=== PATIENT | male | born 1950 | race Caucasian/White ===

== ENCOUNTER 2017-07-31 20:15 | Inpatient (IN) | payer OTHER ==
[2017-07-31] MEDS ORDERED: ASPIRIN 81 MG CHEWABLE TABLETS PO ONE (20:30)
--- NOTE | 2017-07-31 20:30 | PDOC ---
Rapid Medical Evaluation Time Seen by Provider: 07/31/17 20:27 Medical Evaluation: 07/31/17 20:27 I have performed a brief in-person evaluation of this patient. The patient presents with a chief complaint of: pain radiating from RLQ to left chest down to left arm, SOB, blurry vision, dizziness, headache. had stroke 6 months ago, has not taken cholesterol meds in 3 days, weakness to L side, per daughter in law "he seems slower" Pertinent physical exam findings: A&O x 3, no focal neuro deficits, left BP 207/ 107, R 193/113, HR 100 I have ordered the following: labs, ekg, cxr The patient will proceed to the ED for further evaluation. Discharge Disposition - Diagnosis Chest pain - Referrals - Patient Instructions - Post Discharge Activity
[2017-07-31] MEDS ORDERED: ASPIRIN 81 MG CHEWABLE TABLETS ONE (20:54)
--- NOTE | 2017-07-31 20:57 | PDOC ---
Attending Attestation - HPI HPI: 07/31/17 21:04 The patient is a 66 year old male with a significant PMH of stroke (6 months ago ), unspecified heart issues, and hyperlipidemia who presents to the emergency department with left arm tingling and RLQ abdominal pain over the past day. He reports taking an Aspirin at about 12PM to minimal relief. He reports he has not taken his prescribed hyperlipidemia medications in about 3 days. Allergies: NKA PCP: None reported. <Billy Wilde - Last Filed: 07/31/17 23:11> - Resident Resident Name: Jaskaran Johnson - ED Attending Attestation I have performed the following: I have examined & evaluated the patient, The case was reviewed & discussed with the resident, I agree w/resident's findings & plan, Exceptions are as noted - Physicial Exam PE: 08/01/17 19:16 *Physical Exam General Appearance: Yes: Appropriately Dressed. No: Apparent Distress, Intoxicated HEENT: positive: EOMI, MERCED, Normal ENT Inspection, Normal Voice, TMs Normal, Pharynx Normal. negative: Pale Conjunctivae, Photophobia, Scleral Icterus (R), Scleral Icterus (L) Neck: positive: Trachea midline, Normal Thyroid, Supple. negative: Tender, Rigid, Carotid bruit, Stridor, Lymphadenopathy (R), Lymphadenopathy (L), Thyromegaly Respiratory/Chest: positive: Lungs Clear, Normal Breath Sounds. negative: Chest Tender, Respiratory Distress, Accessory Muscle Use, Labored Respiration, RES, Crackles, Rales, Rhonchi, Stridor, Wheezing, Dullness Cardiovascular: positive: Regular Rhythm, Regular Rate, S1, S2. negative: Edema , JVD, Murmur, Bradycardia, Tachycardia Vascular Pulses: Dorsalis-Pedis (R): 2+, Doralis-Pedis (L): 2+ Gastrointestinal/Abdominal: positive: Normal Bowel Sounds, Flat, Soft. RLQ tenderness negative: Organomegaly, Pulsatile Mass, Increased Bowel Sounds, Decreased BS, Distended, Guarding, Rebound, Hernia, Hepatomegaly, Spleenomegaly Lymphatic: negative: Adenopathy, Tenderness Musculoskeletal: positive: Normal Inspection. negative: CVA Tenderness, Decreased Range of Motion Extremity: positive: Normal Capillary Refill, Normal Inspection, Normal Range of Motion, Pelvis Stable. negative: Tender, Pedal Edema, Swelling, Erythema Integumentary: positive: Normal Color, Dry, Warm. 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 negative: EOM Palsy, Facial Droop, Sensory Deficit - Medical Decision Making 07/31/17 23:14 Pt to be admitted. <Pan Clifton - Last Filed: 08/01/17 19:17>
[2017-07-31 21:01] LABS: BASO % 1.1 % (0-2.0); EOS % 0.5 % (0-4.5); HEMATOCRIT 34.5 % (35.4-49); HEMOGLOBIN 11.5 GM/dL (11.7-16.9); LYMPH % 17.7 % (8-40); MCH 25.5 pg (25.7-33.7); MCHC 33.3 g/dl (32.0-35.9); MEAN CELL VOLUME 76.6 fl (80-96); MEAN PLT VOLUME 7.6 fl (7.5-11.1); MONO % 5.8 % (3.8-10.2); NEUT % 74.9 % (42.8-82.8); PLATELET COUNT 278 K/MM3 (134-434); RDW 17.3 % (11.9-15.9); WHITE BLOOD COUNT 11.1 K/mm3 (4.0-10.0)
[2017-07-31] MEDS ORDERED: LABETALOL HCL 5 MG/1 ML (100MG/20 ML VIAL) IVPUSH ONE (21:02)
--- NOTE | 2017-07-31 21:04 | PDOC ---
History of Present Illness - General Chief Complaint: Pain, Acute Stated Complaint: PAIN Time Seen by Provider: 07/31/17 20:27 - History of Present Illness Initial Comments: 07/31/17 21:10 Mr. Benji Velasquez is a 66 yo male w/ pmh of HTN, HLD, stroke approximately 6 months ago with residual left arm weakness, stenosis of heart vessel currently being medically managed (patient unable to provide further information) who presents to ER complaining of 1 day history of RLQ abdominal pain and chest pain /tightness and parasthesias radiating down left arm. The patient denies shortness of breath, headache and dizziness. Denies fever, chills, nausea, vomit, diarrhea and constipation. Denies dysuria, frequency, urgency and hematuria. Allergies: NKDA Past History - Past Medical History Allergies/Adverse Reactions: Allergies Allergy/AdvReac Type Severity Reaction Status Date / Time No Known Allergies Allergy Verified 07/31/17 20:37 Home Medications: Ambulatory Orders NK [No Known Home Medication] 07/31/17 COPD: No - Suicide/Smoking/Psychosocial Hx Smoking History: Never smoked Have you smoked in the past 12 months: No Information on smoking cessation initiated: No Hx Alcohol Use: No Drug/Substance Use Hx: No Review of Systems - Review of Systems Comments:: 07/31/17 21:13 GENERAL/CONSTITUTIONAL: No fever or chills. No weakness. HEAD, EYES, EARS, NOSE AND THROAT: No change in vision. No ear pain or discharge. No sore throat. CARDIOVASCULAR: +Chest pain as described. No shortness of breath RESPIRATORY: No cough, wheezing, or hemoptysis. GASTROINTESTINAL: +RLQ pain. No nausea, vomiting, diarrhea or constipation. GENITOURINARY: No dysuria, frequency, or change in urination. MUSCULOSKELETAL: +Left arm tingling. No change from baseline strength post stroke per patient/family. SKIN: No rash NEUROLOGIC: No headache, vertigo, loss of consciousness, or change in strength/ sensation. ENDOCRINE: No increased thirst. No abnormal weight change HEMATOLOGIC/LYMPHATIC: No anemia, easy bleeding, or history of blood clots. ALLERGIC/IMMUNOLOGIC: No hives or skin allergy. *Physical Exam - Vital Signs Last Vital Signs Temp Pulse Resp BP Pulse Ox 97.8 F 100 H 16 207/107 98 07/31/17 20:29 07/31/17 20:29 07/31/17 20:29 07/31/17 20:29 07/31/17 20:29 - Physical Exam Comments: 07/31/17 21:14 GENERAL: Awake, alert, and fully oriented, in no acute distress HEAD: No signs of trauma, normocephalic, atraumatic EYES: PERRLA, EOMI, sclera anicteric, conjunctiva clear ENT: Auricles normal inspection, hearing grossly normal, nares patent, oropharynx clear without exudates. Moist mucosa NECK: Normal ROM, supple, no lymphadenopathy, JVD, or masses LUNGS: No distress, speaks full sentences, clear to auscultation bilaterally HEART: Regular rate and rhythm, normal S1 and S2, no murmurs, rubs or gallops, peripheral pulses normal and equal bilaterally. ABDOMEN: +TTP in RLQ. Soft, normoactive bowel sounds. No guarding, no rebound. No masses EXTREMITIES: Normal inspection, Normal range of motion, no edema. No clubbing or cyanosis. NEUROLOGICAL: Cranial nerves II through XII grossly intact. Normal speech, normal gait, no focal sensorimotor deficits SKIN: Warm, Dry, normal turgor, no rashes or lesions noted. 07/31/17 23:14 ED Treatment Course - LABORATORY CBC & Chemistry Diagram: 07/31/17 20:53 07/31/17 20:53 - ADDITIONAL ORDERS Additional order review: 07/31/17 20:53 RBC 4.50 MCV 76.6 L MCHC 33.3 RDW 17.3 H MPV 7.6 Neutrophils % 74.9 Lymphocytes % 17.7 Monocytes % 5.8 Eosinophils % 0.5 Basophils % 1.1 - RADIOLOGY Radiology Studies Ordered: Category Date Time Status ABDOMEN & PELVIS CT W/O CONTR [CT] Stat CT Scan 07/31/17 20:[address] WITHOUT CONTRAST [CT] Stat CT Scan 07/31/17 20:56 Ordered - Medications Given in the ED: ED Medications Discontinued Medications Generic Name Dose Route Start Last Admin Trade Name Freq PRN Reason Stop Dose Admin Aspirin 162 mg 07/31/17 20:30 07/31/17 21:02 Asa - PO 07/31/17 20:31 162 mg ONCE ONE Administration Medical Decision Making - Medical Decision Making 07/31/17 23:17 Mr. Benji Velasquez is a 66 yo male w/ pmh as described who presents w/ RLQ pain with left hand parasthesias for 1 day. Head and abdominal CT ordered with labs for evaluation. Head CT negative for acute process. Abdominal CT positive for thickened tubular structure in right lower pelvis suspicious for acute appendicitis. Surgery consulted (Dr. Auguste) who will evaluate patient. Hospitalist paged for admission. 07/31/17 23:32 Patient admitted to medicine. *DC/Admit/Observation/Transfer Diagnosis at time of Disposition: Appendicitis Qualifiers: Appendicitis type: acute appendicitis Acute appendicitis type: unspecified acute appendicitis type Qualified Code(s): K35.80 - Unspecified acute appendicitis - Discharge Dispostion Admit: Yes - Referrals - Patient Instructions - Post Discharge Activity
[2017-07-31] MEDS ORDERED: LABETALOL HCL 5 MG/1 ML (200MG/40ML VIAL) IVPB ONE (21:06)
[2017-07-31 21:20] LABS: INR 1.09 (0.82-1.09); PROTHROMBIN TIME (PATIENT) 12.3 SEC (9.98-11.88)
[2017-07-31 21:23] LABS: ALBUMIN 3.7 g/dl (3.4-5.0); ANION GAP 8 (8-16); BILIRUBIN,TOTAL 0.2 mg/dL (0.2-1.0); BLOOD UREA NITROGEN 19 mg/dL (7-18); CALCIUM 8.5 mg/dL (8.5-10.1); CHLORIDE 105 mmol/L (98-107); CO2 25 mmol/L (21-32); GLUCOSE,RANDOM 132 mg/dL (74-106); MAGNESIUM 1.8 mg/dL (1.8-2.4); POTASSIUM 3.6 mmol/L (3.5-5.1); SGOT/AST 19 U/L (15-37); SGPT/ALT 30 U/L (12-78); SODIUM 138 mmol/L (136-145); TOT PROT 7.7 g/dl (6.4-8.2)
[2017-07-31 21:26] LABS: ALK PHOS 125 U/L (45-117)
[2017-07-31] MEDS ORDERED: VANCOMYCIN 1,000 MG in DEXTROSE 5%-WATER - 250 ML IVPB ONE (23:21)
[2017-07-31] MEDS ORDERED: PIPERACIL/TAZOB 3.375 GM 3.375 GM/50 ML PREMIX IVPB ONE (23:21)
[2017-07-31] MEDS ORDERED: VANCOMYCIN 1 GRAM (PRE-DOCKED) 1,000 MG/250 ML BAG IVPB ONE (23:24)
--- NOTE | 2017-07-31 23:35 | PN ---
Teaching Attending Note Name of Resident: Prosper Dyer ATTENDING PHYSICIAN STATEMENT I saw and evaluated the patient. I reviewed the resident's note and discussed the case with the resident. I agree with the resident's findings and plan as documented. SUBJECTIVE: 66 M with Pmhx. fo HTN, HLD, Stroke (6 months ago, with residual L. arm weakness ), Stenosis of Heart Valve? With RLQ abdominal pain. States he does not have any chest pain or pressure. No headaches or dizziness. Does note RLQ abdominal pain. No fevers or chills. OBJECTIVE: Physical: VS: Vital Signs Period Temp Pulse Resp BP Sys/[place] Pulse Ox Last 24 Hr 97.8 F 83-100 16-18 175-207/83-107 96-98 GEN: NAD, Resting in bed, AA0X3 HEENT: NCAT, PERRL, Throat without erythema or exudates CARD: RRR S1, S2 RESP: CTAB ABD: BSx4, NTD to palpation EXT: - C/C/E CBCD WBC 11.1 K/mm3 (4.0-10.0) H 07/31/17 20:53 RBC 4.50 M/mm3 (4.00-5.60) 07/31/17 20:53 Hgb 11.5 GM/dL (11.7-16.9) L 07/31/17 20:53 Hct 34.5 % (35.4-49) L 07/31/17 20:53 MCV 76.6 fl (80-96) L 07/31/17 20:53 MCHC 33.3 g/dl (32.0-35.9) 07/31/17 20:53 RDW 17.3 % (11.9-15.9) H 07/31/17 20:53 Plt Count 278 K/MM3 (134-434) 07/31/17 20:53 MPV 7.6 fl (7.5-11.1) 07/31/17 20:53 CMP Sodium 138 mmol/L (136-145) 07/31/17 20:53 Potassium 3.6 mmol/L (3.5-5.1) 07/31/17 20:53 Chloride 105 mmol/L (98-107) 07/31/17 20:53 Carbon Dioxide 25 mmol/L (21-32) 07/31/17 20:53 Anion Gap 8 (8-16) 07/31/17 20:53 BUN 19 mg/dL (7-18) H 07/31/17 20:53 Creatinine 1.0 mg/dL (0.7-1.3) 07/31/17 20:53 Creat Clearance w eGFR > 60 (>60) 07/31/17 20:53 Random Glucose 132 mg/dL (74-106) H 07/31/17 20:53 Calcium 8.5 mg/dL (8.5-10.1) 07/31/17 20:53 Total Bilirubin 0.2 mg/dL (0.2-1.0) 07/31/17 20:53 AST 19 U/L (15-37) 07/31/17 20:53 ALT 30 U/L (12-78) 07/31/17 20:53 Alkaline Phosphatase 125 U/L (45-117) H 07/31/17 20:53 Total Protein 7.7 g/dl (6.4-8.2) 07/31/17 20:53 Albumin 3.7 g/dl (3.4-5.0) 07/31/17 20:53 CARDIAC ENZYMES Creatine Kinase 84 IU/L (39-308) 07/31/17 20:53 Troponin I < 0.02 ng/ml (0.00-0.05) 07/31/17 20:53 CXR:PENDING EKG: NSR Q waves inferior leads Ambulatory Orders NK [No Known Home Medication] 07/31/17 CT HEAD- Chronic R. frontoparietal infarct Small left basal ganglia infarcts CT ABD/PELVIS: Mildly thickened tubular structure within RLL Pelvis, possible acute appy. Athrosclerotic AV calcificationa Mild localized bulging of infrarenal aorta without anyeurysm. ASSESSMENT AND PLAN: 66 M with Pmhx. fo HTN, HLD, Stroke (6 months ago, with residual L. arm weakness ), Stenosis of Heart Valve? With RLQ abdominal pain and chest pain, being admitted for ACS rule out and acute appendicitis 1.) Acute Appendicitis - NPO - Zosyn - ID consult - Sx. Consult - Type & Screen - Coags 2.) Hx. of CVA - ASA recieved in ED - CT HEAD as Above - C/W Statin - [facility] 3.) AV Stenosis - ECHO 4.) Dvt Ppx - Scds Place in [facility]
[2017-07-31] MEDS ORDERED: ACETAMINOPHEN 1000 MG/100 ML VIAL (NON FORMULARY) IVPB ONE (23:48)
[2017-08-01] MEDS ORDERED: ACETAMINOPHEN 325 MG TABLET (FP) PO PRN (00:26)
[2017-08-01] MEDS ORDERED: ACETAMINOPHEN INJECTION 100 ML IVPB ONE ×2 (00:35→11:27)
--- NOTE | 2017-08-01 00:52 | HP ---
CHIEF COMPLAINT: abdominal pain PCP: n/a HISTORY OF PRESENT ILLNESS: Patient is a 66 yo M with Pmhx of HTN, HLD, CVA (6 months ago with residual left arm weakness), unspecified heart problem, presents to the ED with 3 day onset of 5/10, intermittent, non-radiating, RLQ abdominal pain. No exacerbating or alleviate factors. Patient states abdominal pain only occurs when pressing on it. Patient denies chest pain, nausea, vomiting, fevers, diarrhea, melena, cough, dysuria, SOB. Patient also states he has not seen a sign builder supervisor or neurologist since his CVA 6 months ago. He currently does not recall the medications he's on. ER course was notable for: (1) Abd CT suspicious for acute appendicitis. (2) Vanc/Zosyn (3) BP 207/107, given 20mg IV labetolol Recent Travel: n/a PAST MEDICAL HISTORY: per HPI PAST SURGICAL HISTORY: n/a Social History: Smoking: denies Alcohol: occasional Drugs: denies Family History: Allergies No Known Allergies Allergy (Verified 07/31/17 20:37) HOME MEDICATIONS: Home Medications Medication Instructions Recorded NK [No Known Home Medication] 07/31/17 REVIEW OF SYSTEMS CONSTITUTIONAL: Absent: fever, chills, diaphoresis, generalized weakness, malaise, loss of appetite, weight change HEENT: Absent: rhinorrhea, nasal congestion, throat pain, throat swelling, difficulty swallowing, mouth swelling, ear pain, eye pain, visual changes CARDIOVASCULAR: Absent: chest pain, syncope, palpitations, irregular heart rate, lightheadedness , peripheral edema RESPIRATORY: Absent: cough, shortness of breath, dyspnea with exertion, orthopnea, wheezing, stridor, hemoptysis GASTROINTESTINAL: Absent: abdominal pain, abdominal distension, nausea, vomiting, diarrhea, constipation, melena, hematochezia GENITOURINARY: Absent: dysuria, frequency, urgency, hesitancy, hematuria, flank pain, genital pain MUSCULOSKELETAL: Absent: myalgia, arthralgia, joint swelling, back pain, neck pain SKIN: Absent: rash, itching, pallor HEMATOLOGIC/IMMUNOLOGIC: Absent: easy bleeding, easy bruising, lymphadenopathy, frequent infections ENDOCRINE: Absent: unexplained weight gain, unexplained weight loss, heat intolerance, cold intolerance NEUROLOGIC: left arm weakness, paresthesias, headaches Absent: dizziness, unsteady gait, seizure, mental status changes, bladder or bowel incontinence PSYCHIATRIC: Absent: anxiety, depression, suicidal or homicidal ideation, hallucinations. PHYSICAL EXAMINATION Vital Signs - 24 hr 07/31/17 07/31/17 07/31/17 20:29 21:09 21:12 Temperature 97.8 F Pulse Rate 100 H Pulse Rate [ 83 Radial] Respiratory 16 18 17 Rate Blood Pressure 207/107 Blood Pressure 197/96 175/83 [Left Arm] O2 Sat by Pulse 98 96 96 Oximetry (%) 07/31/17 07/31/17 21:22 23:49 Temperature 98.7 F Pulse Rate Pulse Rate [ 89 78 Radial] Respiratory 18 Rate Blood Pressure Blood Pressure 180/91 181/84 [Left Arm] O2 Sat by Pulse 98 98 Oximetry (%) GENERAL: Awake, alert, and fully oriented, in no acute distress. HEAD: Normal with no signs of trauma. EYES: extraocular movements intact EARS, NOSE, THROAT: oropharynx clear without exudates. Moist mucous membranes. NECK: supple without lymphadenopathy, JVD, or masses. LUNGS: Breath sounds equal, clear to auscultation bilaterally. No wheezes, and no crackles. No accessory muscle use. HEART: Regular rate and rhythm, 2/6 systolic murmur ABDOMEN: +BS, soft, RLQ tenderness to palpation, negative rovsings, obturator, and psoa sign MUSCULOSKELETAL: 5/5 strength throughout b/l, normal range of motion throughout UPPER EXTREMITIES: left hand tremor, 2+ pulses, warm, well-perfused. No peripheral edema. LOWER EXTREMITIES: 2+ pulses, warm, well-perfused. No calf tenderness. No peripheral edema. NEUROLOGICAL: Cranial nerves II-XII intact. normal heal to zuleta, normal right finger to nose, abnormal r left finger to nose Laboratory Results - last 24 hr 07/31/17 07/31/17 07/31/17 20:53 20:53 20:53 WBC 11.1 H RBC 4.50 Hgb 11.5 L Hct 34.5 L MCV 76.6 L MCH 25.5 L MCHC 33.3 RDW 17.3 H Plt Count 278 MPV 7.6 Neutrophils % 74.9 Lymphocytes % 17.7 Monocytes % 5.8 Eosinophils % 0.5 Basophils % 1.1 PT with INR 12.30 H INR 1.09 Sodium 138 Potassium 3.6 Chloride 105 Carbon Dioxide 25 Anion Gap 8 BUN 19 H Creatinine 1.0 Creat Clearance w eGFR > 60 Random Glucose 132 H Calcium 8.5 Magnesium 1.8 Total Bilirubin 0.2 AST 19 ALT 30 Alkaline Phosphatase 125 H Creatine Kinase 84 Troponin I < 0.02 Total Protein 7.7 Albumin 3.7 EKG: NSR Q waves inferior leads CT HEAD- Chronic R. frontoparietal infarct, Small left basal ganglia infarcts CT ABD/PELVIS: Mildly thickened tubular structure within RLL Pelvis, possible acute appendicitis. Athrosclerotic AV calcification, Mild localized bulging of infrarenal aorta without anyeurysm. ASSESSMENT/PLAN: 66 yo M with Pmhx of HTN, HLD, CVA (6 months ago with residual left arm weakness), unspecified heart problem, presents to the ED with 3 day RLQ abdominal pain admitted for R/o ACS and acute appendicitis. #Acute Appendicitis -CT abd: suspicious for appendicitis -NPO -Vanc/Zosyn in ER -Tylenol PRN for pain control -ID consult: Dr. Newton -Surgery Consult -Type & Screen -Coags #Hx. of CVA -ASA recieved in ED -CT HEAD as Above -C/W Statin -Echo ordered -Son says possible Echo[facility]Carotids done in [facility] -requires med rec #HTN/HLD -Labetolol 20mg IV in ER -requires med rec #FEN -No IV fluids -WNL -NPO #Dvt Ppx -Scds Place in Med Sx Visit type - Emergency Visit Emergency Visit: Yes ED Registration Date: 07/31/17 Care time: The patient presented to the Emergency Department on the above date and was hospitalized for further evaluation of their emergent condition. - New Patient This patient is new to me today: Yes Date on this admission: 08/01/17 - Critical Care Critical Care patient: No Hospitalist Screening - Colonoscopy Questionnaire Colonoscopy Questionnaire: Colonoscopy Questionnaire - Patient: 50 - 75 years old and never had a screening colonoscopy: Unknown History of colon or rectal polyps, or CA: Unknown History of IBD, Crohn's disease or UC: Unknown History of abdominal radiation therapy as a child: Unknown - Relative: 1 with colon or rectal CA, or polyps at age 60 or younger: Unknown Colon or rectal CA diagnosed at age 45 or younger: Unknown Multiple relatives with colon or rectal CA: Unknown - Outcome: Screening Result: Negative Screen
--- NOTE | 2017-08-01 04:32 | CONSULT ---
Consult Consult Specialty:: general surgery Reason for Consultation:: acute appendicitis - History of Present Illness Chief Complaint: abdominal pain History of Present Illness: 66 yo male PMH HTN, HLD, CVA (6 months ago with residual left arm weakness), unspecified heart problem, presents to the ED with 3 day onset of 5/10, intermittent, non-radiating, RLQ abdominal pain. No exacerbating or alleviate factors. Patient states abdominal pain only occurs when pressing on it. Patient denies chest pain, nausea, vomiting, fevers, diarrhea, melena, cough, dysuria, SOB. Patient also states he has not seen a booking manager or neurologist since his CVA [address] scan of the abdomen shows and inflammed appendix. we were asked to assess. 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 Cardio/Vascular: Yes: HTN, Hyperlipdemia - Alcohol/Substance Use Hx Alcohol Use: No - Smoking History Smoking history: Never smoked Have you smoked in the past 12 months: No Home Medications - Allergies Allergies/Adverse Reactions: Allergies Allergy/AdvReac Type Severity Reaction Status Date / Time No Known Allergies Allergy Verified 07/31/17 20:37 - Home Medications Home Medications: Ambulatory Orders NK [No Known Home Medication] 07/31/17 Review of Systems - Review of Systems Constitutional: denies: Chills, Fever Eyes: denies: Blurred Vision, Recent Change in Vision HENT: denies: Difficult Swallowing, Throat Pain Neck: denies: Pain on Movement, Tenderness Cardiovascular: denies: Chest Pain, Palpitations Respiratory: denies: Cough, SOB Gastrointestinal: reports: Abdominal Pain. denies: Constipation, Diarrhea Genitourinary: denies: Discharge, Dysuria Breasts: reports: No Symptoms Reported. denies: Pain Musculoskeletal: denies: Muscle Pain, Muscle Weakness Integumentary: denies: Lesions, Rash Neurological: denies: Confusion, Dizziness, Seizure, Syncope Endocrine: denies: Unexplained Weight Gain, Unexplained Weight Loss Hematology/Lymphatic: denies: Easily Bruised, Excessive Bleeding Psychiatric: denies: Anxiety, Depression Physical Exam Vital Signs: Vital Signs Temperature 98.7 F 07/31/17 23:49 Pulse Rate 78 07/31/17 23:49 Respiratory Rate 18 07/31/17 23:49 Blood Pressure 181/84 07/31/17 23:49 O2 Sat by Pulse Oximetry (%) 98 07/31/17 23:49 Vital Signs Period Temp Pulse Resp BP Sys/[place] Pulse Ox Last 24 Hr 97.8 F-98.7 F 75-100 16-18 138-207/81-107 96-99 Constitutional: Yes: Well Nourished, No Distress, Calm Eyes: Yes: Conjunctiva Clear, EOM Intact HENT: Yes: Atraumatic, Normocephalic Neck: Yes: Supple, Trachea Midline Cardiovascular: Yes: Regular Rate and Rhythm, S1, S2. No: Murmur Respiratory: Yes: Regular, CTA Bilaterally Gastrointestinal: Yes: Normal Bowel Sounds, Soft. No: Tenderness ...Rectal Exam: Yes: Deferred Renal/: No: CVA Tenderness - Left, CVA Tenderness - Right Musculoskeletal: No: Muscle Pain, Muscle Weakness Extremities: No: Cool, Cyanosis Edema: No Peripheral Pulses WNL: Yes Wound/Incision: Yes: Clean/Dry, Well Approximated Neurological: Yes: Alert, Oriented Psychiatric: Yes: Alert, Oriented Labs: CBC, BMP 07/31/17 20:53 07/31/17 20:53 Imaging - Results Cat Scan: Report Reviewed, Image Reviewed (inflammed appendix tubular structure RLQ towards pelvis) Problem List - Problems (1) Appendicitis Assessment/Plan: 66 yo male with MMP pesents with RLQ abdominal pain, CT consistent with acute appendicitis, mild initial leukocutosis 11.1 NPO and IVF hydration IV antibotics Medical optimization prior to emergency procedure Discussed with patient risks, benefits and alternatives of laparoscopic possible open appendectomy, including but not limited to bleeding, infection, injury to adjacent structures, leak or injury, intraabdominal abscess, need for further procedures, ; alternatives include antibiotics, delayed or no surgery - risks of this include failure of nonoperative therapy, perforation, sepsis, recurrence, . Patient desires to proceed with operation - will take to OR for above. Informed consent signed for same. Thank you for the opportunity to participate in the care of this patient. Code(s): K37 - UNSPECIFIED APPENDICITIS Qualifiers: Appendicitis type: acute appendicitis Acute appendicitis type: unspecified acute appendicitis type Qualified Code(s): K35.80 - Unspecified acute appendicitis (2) HTN (hypertension) Code(s): I10 - ESSENTIAL (PRIMARY) HYPERTENSION Qualifiers: Hypertension type: essential hypertension Qualified Code(s): I10 - Essential (primary) hypertension (3) Hyperlipidemia Code(s): E78.5 - HYPERLIPIDEMIA, UNSPECIFIED Qualifiers: Hyperlipidemia type: unspecified Qualified Code(s): E78.5 - Hyperlipidemia , unspecified (4) History of CVA in adulthood Code(s): Z86.73 - PRSNL HX OF TIA (TIA), AND CEREB INFRC W/O RESID DEFICITS
[2017-08-01 07:28] LABS: HEMATOCRIT 32.8 % (35.4-49); HEMOGLOBIN 11.1 GM/dL (11.7-16.9); MCH 25.9 pg (25.7-33.7); MCHC 33.8 g/dl (32.0-35.9); MEAN CELL VOLUME 76.8 fl (80-96); MEAN PLT VOLUME 7.8 fl (7.5-11.1); PLATELET COUNT 284 K/MM3 (134-434); RBC 4.27 M/mm3 (4.00-5.60); RDW 17.2 % (11.9-15.9); WHITE BLOOD COUNT 6.6 K/mm3 (4.0-10.0)
[2017-08-01 07:41] LABS: ALBUMIN 3.2 g/dl (3.4-5.0); ANION GAP 7 (8-16); BILIRUBIN,TOTAL 0.4 mg/dL (0.2-1.0); BLOOD UREA NITROGEN 15 mg/dL (7-18); CALCIUM 8.6 mg/dL (8.5-10.1); CHLORIDE 108 mmol/L (98-107); CO2 26 mmol/L (21-32); CREATININE 0.9 mg/dL (0.7-1.3); GLUCOSE,RANDOM 89 mg/dL (74-106); POTASSIUM 3.4 mmol/L (3.5-5.1); SGOT/AST 18 U/L (15-37); SGPT/ALT 26 U/L (12-78); SODIUM 141 mmol/L (136-145); TOT PROT 6.8 g/dl (6.4-8.2)
[2017-08-01 07:42] LABS: ALK PHOS 102 U/L (45-117)
--- NOTE | 2017-08-01 09:34 | PN ---
Progress Note (short form) - Note Progress Note: ID Full noted dictated Impression Possible appendicitis Abnormal chest xray ? old TB Plan O R Dr Auguste Ceftriaxone and metronidazole CRP HIV test Quant gold CT chest Naty JAMESON Problem List - Problems (1) Appendicitis Code(s): K37 - UNSPECIFIED APPENDICITIS Qualifiers: Appendicitis type: acute appendicitis Acute appendicitis type: unspecified acute appendicitis type Qualified Code(s): K35.80 - Unspecified acute appendicitis (2) Abnormal chest xray Code(s): R93.8 - ABNORMAL FINDINGS ON DIAGNOSTIC IMAGING OF BODY STRUCTURES
[2017-08-01] MEDS ORDERED: METOPROLOL TARTRATE 5 MG/5 ML VIAL IVPUSH PRN (09:38)
--- NOTE | 2017-08-01 09:38 | PN ---
Teaching Attending Note Name of Resident: Osmany Lopez ATTENDING PHYSICIAN STATEMENT I saw and evaluated the patient. I reviewed the resident's note and discussed the case with the resident. I agree with the resident's findings and plan as documented. SUBJECTIVE: Patient is c/o having RLQ pain , No fever or chills at this time. OBJECTIVE: Vital Signs Temperature 98.0 F 08/01/17 09:07 Pulse Rate 75 08/01/17 09:07 Respiratory Rate 18 08/01/17 09:07 Blood Pressure 138/92 08/01/17 09:07 O2 Sat by Pulse Oximetry (%) 99 08/01/17 09:07 CBCD WBC 6.6 K/mm3 (4.0-10.0) D 08/01/17 07:02 RBC 4.27 M/mm3 (4.00-5.60) 08/01/17 07:02 Hgb 11.1 GM/dL (11.7-16.9) L 08/01/17 07:02 Hct 32.8 % (35.4-49) L 08/01/17 07:02 MCV 76.8 fl (80-96) L 08/01/17 07:02 MCHC 33.8 g/dl (32.0-35.9) 08/01/17 07:02 RDW 17.2 % (11.9-15.9) H 08/01/17 07:02 Plt Count 284 K/MM3 (134-434) 08/01/17 07:02 MPV 7.8 fl (7.5-11.1) 08/01/17 07:02 CMP Sodium 141 mmol/L (136-145) 08/01/17 07:00 Potassium 3.4 mmol/L (3.5-5.1) L 08/01/17 07:00 Chloride 108 mmol/L (98-107) H 08/01/17 07:00 Carbon Dioxide 26 mmol/L (21-32) 08/01/17 07:00 Anion Gap 7 (8-16) L 08/01/17 07:00 BUN 15 mg/dL (7-18) D 08/01/17 07:00 Creatinine 0.9 mg/dL (0.7-1.3) 08/01/17 07:00 Creat Clearance w eGFR > 60 (>60) 08/01/17 07:00 Random Glucose 89 mg/dL (74-106) D 08/01/17 07:00 Calcium 8.6 mg/dL (8.5-10.1) 08/01/17 07:00 Total Bilirubin 0.4 mg/dL (0.2-1.0) D 08/01/17 07:00 AST 18 U/L (15-37) 08/01/17 07:00 ALT 26 U/L (12-78) 08/01/17 07:00 Alkaline Phosphatase 102 U/L (45-117) 08/01/17 07:00 Total Protein 6.8 g/dl (6.4-8.2) 08/01/17 07:00 Albumin 3.2 g/dl (3.4-5.0) L 08/01/17 07:00 CARDIAC ENZYMES Creatine Kinase 84 IU/L (39-308) 07/31/17 20:53 Troponin I < 0.02 ng/ml (0.00-0.05) 08/01/17 03:29 Home Medications Medication Instructions Recorded NK [No Known Home Medication] 07/31/17 Current Medications Generic Name Dose Route Start Last Admin Trade Name Freq PRN Reason Stop Dose Admin Acetaminophen 650 mg 08/01/17 00:26 Tylenol - PO Q4H PRN PAIN LEVEL 4 - 6 Potassium Chloride 10 meq in 100 mls @ 100 mls/hr 08/01/17 08:45 Potassium Chloride 10 Meq Premix Ivpb - IVPB 08/01/17 11:44 Q60M NAN Ceftriaxone Sodium 1 gm/ 100 mls @ 200 mls/hr 08/01/17 10:00 Dextrose IVPB DAILY NAN Metronidazole 500 mg in 100 mls @ 100 mls/hr 08/01/17 10:00 Flagyl 500mg Premixed Ivpb - IVPB Q8H-IV NAN Metoprolol Tartrate 5 mg 08/01/17 09:38 Lopressor Injection - IVPUSH Q4H PRN HYPERTENSION CT HEAD- Chronic R. frontoparietal infarct Small left basal ganglia infarcts CT ABD/PELVIS: Mildly thickened tubular structure within RLL Pelvis, possible acute appy. Athrosclerotic AV calcificationa Mild localized bulging of infrarenal aorta without anyeurysm. ASSESSMENT AND PLAN: Patient is a 66 M with Pmhx. fo HTN, HLD, Stroke (6 months ago, with left residual residual weakness), presented with RLQ abdominal pain being admitted for acute appendicitis. # Acute appendicitis can't r/o On Iv Rocephin and Flagyl # Latent questional TB , Ct of the chest ordered, quanteron ordered. # HTN uncontrolled on Lopressor IV now with parameters, Labetolol IV was given earlier. going to OR discussed with the surgeon and ID
--- NOTE | 2017-08-01 09:49 | EKG ---
Test Reason : Blood Pressure : / mmHG Vent. Rate : 105 BPM Atrial Rate : 105 BPM P-R Int : 182 ms QRS Dur : 088 ms QT Int : 352 ms P-R-T Axes : 083 046 058 degrees QTc Int : 465 ms SINUS TACHYCARDIA VOLTAGE CRITERIA FOR LEFT VENTRICULAR HYPERTROPHY POSSIBLE INFERIOR INFARCT , AGE UNDETERMINED ABNORMAL ECG NO PREVIOUS ECGS AVAILABLE Confirmed by KATHY NUÑEZ MD ([id number]) on 08/01/2017 9:49:42 AM Referred By: Confirmed By:KATHY NUÑEZ MD
[2017-08-01] MEDS ORDERED: KCL 10 MEQ IVPB 30 MEQ/300 ML INFUS.BAG IVPB ONE (09:52)
[2017-08-01] MEDS ORDERED: CEFTRIAXONE 1 GM in DEXTROSE 5%-WATER - 50 ML IVPB SCH (10:00)
--- NOTE | 2017-08-01 10:08 | CONS ---
INFECTIOUS DISEASE CONSULTATION DATE OF CONSULTATION: DATE OF DICTATION: 08/01/2017 This is a 66-year-old male originally from [facility], who presents to the hospital with a 3-day history of intermittent, nonradiating pain in the right lower quadrant. He was seen in the ER by Dr. Auguste and had a CAT scan of the abdomen obtained which shows what was thought to be an inflamed appendix. He is currently scheduled to go to the OR for an appendectomy. He has no fever, and his white count is mildly elevated. At the current time, his abdominal pain has apparently improved since he first came in to the emergency room. He has no chills and no fever. PAST MEDICAL HISTORY: Includes hypertension, hyperlipidemia, status post CVA. CURRENT MEDICATIONS: Tylenol. ALLERGIES: None known. SOCIAL HISTORY: Nonsmoker. No history of substance abuse, EtOH. , unemployed. FAMILY HISTORY: Noncontributory. REVIEW OF SYSTEMS: Noncontributory. PHYSICAL EXAMINATION: General: He was a well-nourished appearing male in no acute distress. Vital Signs: The temperature was 98, pulse 75, blood pressure 138/92, respirations 18. Neck: Supple. Lungs: Clear to auscultation. Heart: S1, S2. Regular rhythm. No audible murmur. Abdomen: Soft with mild tenderness noted in the right lower quadrant. No guarding. No rebound. Extremities: No clubbing, cyanosis, or edema. DIAGNOSTIC DATA: The white count was 11.1, hemoglobin 11.5, platelets of 278. Chemistries within normal limit. Two sets of blood cultures obtained, currently pending. CT of the abdomen shows mildly thickened tubular structure in the right lower pelvis suspicious for appendicitis. Chest x-ray was reviewed and shows pleural reaction with scarring, possible fibrosis, fullness in the superior mediastinum, old apical disease on the right side noted. ASSESSMENT: A 66-year-old male with findings clinically and per CAT scan imaging consistent with appendicitis. The patient will be taken to the operating room for appendectomy per Dr. Auguste. Regarding antibiotics, he does not look acutely ill. We will give ceftriaxone and metronidazole. Lastly, he has a markedly abnormal x-ray. This was discussed with him, and he noted that in [facility] 40 years ago he may have been treated for latent tuberculosis. PLAN: In this regard, he will have a QuantiFERON Gold obtained and a CAT scan of the chest for further delineation of the abnormal chest x-ray, CRP, and HIV testing. ESTEFANÍA INFANTE M.D. ALCON/[id number]
[2017-08-01] MEDS ORDERED: POTASSIUM CHLORIDE 10 MEQ in SODIUM CHLORIDE 100 ML IVPB SCH (11:00)
[2017-08-01 11:02] VITALS: BMI 19.8
[2017-08-01] MEDS ORDERED: BUPIVACAINE HCL/PF 0.5% (5MG/ML) 10 ML VIAL ONE (11:12)
[2017-08-01] MEDS ORDERED: fentaNYL CITRATE 250 MCG/5 ML VIAL ONE (11:23)
[2017-08-01] MEDS ORDERED: MIDAZOLAM HCL 2 MG/2 ML SINGLE DOSE VIAL ONE (11:23)
[2017-08-01] MEDS ORDERED: ROCURONIUM BROMIDE 50 MG/5 ML VIAL ONE (11:23)
[2017-08-01] MEDS ORDERED: DESFLURANE GAS 240 ML BOTTLE IH ONE (11:28)
[2017-08-01] MEDS ORDERED: CEFOXITIN SODIUM 1 GM IVPB ONE (11:42)
[2017-08-01] MEDS ORDERED: cefOXitin SODIUM 1 GM VIAL (RESTRICTED TO ID) IVPB ONE (11:53)
[2017-08-01] MEDS ORDERED: cefTRIAXone SODIUM 1 GM VIAL IVPB ONE ×2 (11:53→12:15)
[2017-08-01] MEDS ORDERED: POTASSIUM CHLORIDE 20 MEQ in SODIUM CHLORIDE 250 ML IVPB ONE (12:00)
[2017-08-01] MEDS ORDERED: LABETALOL HCL 5 MG/1 ML (100MG/20 ML VIAL) ONE (12:35)
[2017-08-01] MEDS ORDERED: BENZOIN/ALOE VERA/STORAX/TOLU 58 ML BOTTLE ONE (12:43)
[2017-08-01] MEDS ORDERED: BUPIVACAINE HCL/PF 0.5% (5MG/ML) 10 ML VIAL IJ ONE (12:45)
[2017-08-01] MEDS ORDERED: NEOSTIGMINE METHYLSULFATE 0.5 MG/ML - 10 ML MDV ONE (12:46)
[2017-08-01] MEDS ORDERED: GLYCOPYRROLATE 0.2 MG/1 ML VIAL ONE (12:47)
--- NOTE | 2017-08-01 13:15 | OP ---
Operative Note - Note: Operative Date: 08/01/17 Pre-Operative Diagnosis: acute appendicitis Operation: laparoscopic cholecystectomy Findings: inflammed appendix Post-Operative Diagnosis: Same as Pre-op Surgeon: Lexx Auguste Anesthesiologist/LINEN CHECKER: Caleb Galvan Anesthesia: General, Local (0.5% marcaine 10ml) Specimens Removed: appendix Estimated Blood Loss (mls): 10 Drains, Volume Out (mls): 300 (washington (removed)) Fluid Volume Replaced (mls): 1,000 (crystalloid ) Operative Report Dictated: Yes
[2017-08-01] MEDS ORDERED: ONDANSETRON 4 MG/2 ML VIAL IVPUSH PRN (13:19)
--- NOTE | 2017-08-01 13:28 | EKG ---
Test Reason : Blood Pressure : / mmHG Vent. Rate : 078 BPM Atrial Rate : 078 BPM P-R Int : 174 ms QRS Dur : 090 ms QT Int : 388 ms P-R-T Axes : 069 047 023 degrees QTc Int : 442 ms NORMAL SINUS RHYTHM VOLTAGE CRITERIA FOR LEFT VENTRICULAR HYPERTROPHY CANNOT RULE OUT INFERIOR INFARCT (CITED ON OR BEFORE 31-JUL-2017) ABNORMAL ECG WHEN COMPARED WITH ECG OF 31-JUL-2017 20:35, NONSPECIFIC T WAVE ABNORMALITY NOW EVIDENT IN INFERIOR LEADS Confirmed by KATHY NUÑEZ MD ([id number]) on 08/01/2017 1:28:22 PM Referred By: Confirmed By:KATHY NUÑEZ MD
[2017-08-01] MEDS ORDERED: LACTATED RINGERS SOLUTION 1,000 ML IV SCH (13:30)
--- NOTE | 2017-08-01 14:56 | OP ---
DATE OF OPERATION: 08/01/2017 PREOPERATIVE DIAGNOSIS: Acute appendicitis. POSTOPERATIVE DIAGNOSIS: Acute appendicitis. PROCEDURE: Laparoscopic appendectomy. ATTENDING SURGEON: Lexx Auguste MD HEALTH PSYCHOLOGIST: No one. ANESTHESIOLOGIST: Caleb Galvan MD ANESTHESIA TYPE: General with local. Local consisted of 0.5% Marcaine, 10 mL given in area block fashion at the port sites. ESTIMATED BLOOD LOSS: 10 mL ESTIMATED INTRAVENOUS FLUID ADMINISTERED: Crystalloid 1000 mL. OUTPUT: Vieyra drained 300 mL of urine and was removed postop. BRIEF INDICATION: Patient is a 66-year-old male presenting with right lower quadrant abdominal pain for a period of 3 days. He had a CAT scan that confirmed the presence of acute appendicitis and mild leukocytosis of 11.1. He was counseled regarding the need for a laparoscopic appendectomy, possible open, signed informed consent after being explained the risks, benefits, and alternatives in ekuk language of [place] and he was taken to the procedure. DESCRIPTION OF PROCEDURE: Patient was brought to the operating room. He was placed in supine position on the operating table with the right arm extended at 90 degrees perpendicular to the body's axis and the left arm tucked and rolled. The patient had lower extremities' SCDs placed, had received intravenous antibiotics of ceftriaxone prior to surgery, was induced with general anesthesia, endotracheally intubated without event by Anesthesia. The anterior abdominal wall was shaved, prepped, and draped in standard surgical fashion. A formal timeout was completed, identifying the operative site and the procedure. At which point, we proceeded first with a Soraya entry in the supraumbilical position. A 15 blade was used to incise the skin for a 12-mm trocar. It was deepened and widened through the subcutaneous tissue to the anterior rectus sheath. It was identified and then incised with the Bovie cautery and scored, elevated into the surgical field with Kochers, and then, an entry into the abdomen was made atraumatically. We installed a 12-mm trocar in the supraumbilical position and established a pneumoperitoneum of 15 mmHg. At which point, we proceeded with inspection of the site. There appeared to be no unintentional damage to the interior abdominal viscera. Two additional 5-mm ports were placed at the suprapubic position and at the anterior-superior iliac spine and at the mid-clavicular line, a third port. We then proceeded with placing the patient into Trendelenburg position to allow for the bowel to fall away from the cecum. The cecum was identified and traced with its teniae back to the base of the appendix. The appendix base was grasped and elevated. A plane was developed between the base of the appendix and the mesoappendix. At which point, we re-sited the camera to the left lower quadrant port and visualized a spot where we would place an Endo SYLVESTER stapler 60 with a blue load to transect the base of the appendix. This stapler was fired across the base under direct visualization. With this cleared, a second staple firing of the mesoappendix using a white load Endo SYLVESTER size 60 mm was fired across the mesoappendix. The appendix was then retrieved from the abdomen using an Endo Catch bag size 10 mm from the umbilicus. This was done under direct visualization. There appeared to be no significant blood loss, and hemostasis was obtained throughout the field. A small amount of free air, edema fluid, and lian were suctioned from the abdomen. The patient was then returned to level position. We removed the ports under direct visualization. The umbilical port was closed with a 0 Vicryl in interrupted fashion using a figure-of-8 to ablate the umbilical port, and the skin was closed with subcuticular 4-0 Vicryl. The skin was cleaned. Sterile dressings were placed. The patient was awoken from general anesthesia, having tolerated the procedure well. Counts were correct postoperatively. He returned to recovery room in stable condition. MD QUAN Fraser/[id number]
[2017-08-01] MEDS ORDERED: ACETAMINOPHEN 325 MG TABLET (FP) ONE (16:11)
--- NOTE | 2017-08-01 17:10 | PN ---
Progress Note (short form) - Note Progress Note: Unable to consult on patient. Was in the OR this morning and was discharged post-op.
[2017-08-01 19:28] VITALS: BP 164/94; PULSE 76; TEMP 97.6
--- NOTE | 2017-08-01 20:01 | DS ---
Physical Exam: SUBJECTIVE: Patient seen and examined at bedside. No new complaints. Pain controlled. OBJECTIVE: Vital Signs Period Temp Pulse Resp BP Sys/[place] Pulse Ox Last 24 Hr 97.6 F-98.7 F 65-100 16-18 108-207/53-107 96-100 PHYSICAL EXAM GENERAL: The patient is awake, alert, and fully oriented, in no acute distress. HEAD: Normal with no signs of trauma. EYES: PERRL, extraocular movements intact, sclera anicteric, conjunctiva clear. NECK: Trachea midline, full range of motion, supple. LUNGS: Breath sounds equal, clear to auscultation bilaterally, no wheezes, no crackles, no accessory muscle use. HEART: Regular rate and rhythm, S1, S2 without murmur, rub or gallop. ABDOMEN: Soft, nondistended, normoactive bowel sounds, no guarding. Tenderness to palpation on the right side of the abdomen in both upper and lower quadrants EXTREMITIES: 2+ pulses, warm, well-perfused, no edema. NEUROLOGICAL: Cranial nerves II through X grossly intact. Normal speech, gait not observed. PSYCH: Normal mood, normal affect. SKIN: Warm, dry, normal turgor, no rashes or lesions noted. LABS Laboratory Results - last 24 hr 07/31/17 07/31/17 07/31/17 20:53 20:53 20:53 WBC 11.1 H RBC 4.50 Hgb 11.5 L Hct 34.5 L MCV 76.6 L MCH 25.5 L MCHC 33.3 RDW 17.3 H Plt Count 278 MPV 7.6 Neutrophils % 74.9 Lymphocytes % 17.7 Monocytes % 5.8 Eosinophils % 0.5 Basophils % 1.1 Retic Count PT with INR 12.30 H INR 1.09 Sodium 138 Potassium 3.6 Chloride 105 Carbon Dioxide 25 Anion Gap 8 BUN 19 H Creatinine 1.0 Creat Clearance w eGFR > 60 Random Glucose 132 H Calcium 8.5 Magnesium 1.8 Total Bilirubin 0.2 AST 19 ALT 30 Alkaline Phosphatase 125 H Creatine Kinase 84 Troponin I < 0.02 C-Reactive Protein Total Protein 7.7 Albumin 3.7 HIV 1&2 Antibody Screen HIV P24 Antigen Blood Type Antibody Screen 07/31/17 08/01/17 08/01/17 23:10 03:29 07:00 WBC RBC Hgb Hct MCV MCH MCHC RDW Plt Count MPV Neutrophils % Lymphocytes % Monocytes % Eosinophils % Basophils % Retic Count PT with INR INR Sodium 141 Potassium 3.4 L Chloride 108 H Carbon Dioxide 26 Anion Gap 7 L BUN 15 D Creatinine 0.9 Creat Clearance w eGFR > 60 Random Glucose 89 D Calcium 8.6 Magnesium Total Bilirubin 0.4 D AST 18 ALT 26 Alkaline Phosphatase 102 Creatine Kinase Troponin I < 0.02 C-Reactive Protein 3.1 H Total Protein 6.8 Albumin 3.2 L HIV 1&2 Antibody Screen HIV P24 Antigen Blood Type O POSITIVE Antibody Screen Negative 08/01/17 08/01/17 08/01/17 07:00 07:02 07:02 WBC 6.6 D RBC 4.27 Hgb 11.1 L Hct 32.8 L MCV 76.8 L MCH 25.9 MCHC 33.8 RDW 17.2 H Plt Count 284 MPV 7.8 Neutrophils % Lymphocytes % Monocytes % Eosinophils % Basophils % Retic Count 1.47 PT with INR INR Sodium Potassium Chloride Carbon Dioxide Anion Gap BUN Creatinine Creat Clearance w eGFR Random Glucose Calcium Magnesium Total Bilirubin AST ALT Alkaline Phosphatase Creatine Kinase Troponin I C-Reactive Protein Cancelled Total Protein Albumin HIV 1&2 Antibody Screen HIV P24 Antigen Blood Type Antibody Screen 08/01/17 08/01/17 13:20 15:00 WBC RBC Hgb Hct MCV MCH MCHC RDW Plt Count MPV Neutrophils % Lymphocytes % Monocytes % Eosinophils % Basophils % Retic Count PT with INR INR Sodium Potassium 3.8 Chloride Carbon Dioxide Anion Gap BUN Creatinine Creat Clearance w eGFR Random Glucose Calcium Magnesium Total Bilirubin AST ALT Alkaline Phosphatase Creatine Kinase Troponin I C-Reactive Protein Total Protein Albumin HIV 1&2 Antibody Screen Negative HIV P24 Antigen Negative Blood Type Antibody Screen HOSPITAL COURSE: Date of Admission:07/31/17 The patient is a 66 yo M with Pmhx of HTN, HLD, CVA (6 months ago with residual left arm weakness), who presented to the ED c/o 3 day hx of 5/10, intermittent, non-radiating, RLQ abdominal pain. In the ED, the patient was found to be in moderate pain as well as have a BP of 207/107. A ct of the abdomen was suspicious for appendicitis. Surgery was consulted. Cardiology was consulted. Infectious disease was consulted. The patient's pain was controlled with IV tylenol. He was pre medicated with zosyn and vancomycin. his BP was controlled with a one time dose of IV labetolol. The patient was taken to the OR for a laparoscopic appendectomy with Dr. Auguste. The patient tolerated the procedure well and was discharged the same day with instructions for follow up with Dr. Auguste. He was given a prescription for Percocet for pain control. Date of Discharge: 08/01/17 Minutes to complete discharge: 39 Discharge Summary Reason For Visit: APPENDICITIS Condition: Improved - Instructions Diet, Activity, Other Instructions: Postoperative instructions: You had a laparoscopic appendectomy on by Dr. Lexx Auguste of [facility]. Activity: Resume your usual activities gradually, but no heavy exertion or lifting more than 10-15 pounds for 1 month. Remove dressings 48 hours after surgery; sticky tapes underneath will fall off by themselves. You may shower daily starting then, just pat the incision areas dry. Eat lightly at first, but advance to your usual diet as tolerated. Pain: For pain, you may use and alternate Tylenol (acetaminophen) and/or ibuprofen every 6 hours each as needed; this means that you can take one OR the other at 3-hour intervals. If you are prescribed a Tylenol/narcotic combination for severe pain, use it instead of plain Tylenol as needed and switch back when your pain starts decreasing. Do not take more than 4000mg of acetaminophen in a day. Take medications as prescribed or indicated on the labeling. Follow-up: Call Dr. Auguste' office at [phone] to make your postop appointment (Saturday ~2 weeks after surgery). Clinic is held in the Diagnostic [facility] on the first floor of [facility]. Call the office or return to the emergency department if you have: * increasing pain not responsive to pain medication * fever of 101F or higher * vomiting * unusual or increasing bleeding or drainage from wounds * increasing redness or swelling at wound sites * inability to urinate Also, see your primary medical doctor within 1-2 weeks. You were also having some difficulty with some tendons in your shoulder. If you wish, you may see an orthopedist for this. Information for Dr. Aly has been included in your discharge paperwork. You should resume taking the rest of your home medications as prescribed Referrals: Lexx Auguste MD [Staff Physician] - Disposition: HOME - Home Medications Comprehensive Discharge Medication List: Ambulatory Orders Aspirin [ASA -] 325 mg PO DAILY 08/01/17 Carvedilol 25 mg PO DAILY 08/01/17 Hydralazine HCl 50 mg PO TID 08/01/17 Oxycodone HCl/Acetaminophen [Percocet 5/325 -] 1 - 2 tab PO Q6H #40 tab MDD 6 Pravastatin Sodium 20 mg PO DAILY 08/01/17 This patient is new to me today: Yes Date on this admission: 08/01/17 Emergency Visit: Yes ED Registration Date: 07/31/17 Care time: The patient presented to the Emergency Department on the above date and was hospitalized for further evaluation of their emergent condition. Critical Care patient: No - Discharge Referral Referred to [facility] No
[2017-08-02 08:08] LABS: SERUM IRON SATURATION 9 % (15-55); TOTAL IRON BINDING CAPACITY 359 ug/dL (250-450); UIBC 326 ug/dL (111-343)
--- NOTE | 2017-08-05 08:58 | PATH ---
Surgical Pathology Report Patient Name: MEDINA HENNESSY [facility]. Rec. #: [id number] /Age/Gender: 1950 (Age: 66) / M Account: [id number] Location: EMERGENCY ROOM Taken: 08/01/2017 Received: 08/01/2017 Reported: 08/05/2017 Physicians: Lexx Auguste M.D. Specimen(s) Received APPENDIX Clinical History Acute appendicitis Final Diagnosis APPENDIX, APPENDECTOMY: ACUTE APPENDICITIS AND PERIAPPENDICITIS. Electronically Signed Jerman Ugalde M.D. Gross Description Received in formalin, labeled "appendix," is a 6 x 1 x 1 cm. in length vermiform appendix with a stapled margin of resection and minimal attached fat. The serosa is sanchez and focally hemorrhagic. Sectioning reveals focally hemorrhagic lumen. The wall of the appendix averages 0.2 cm. in thickness. Investment Representative sections are submitted in one cassettes. AMARILIS/08/01/2017 david/08/01/2017
== END 2017-08-01 19:35 | disposition home or self-care (01) | DRG 225 ==
LOC: JER 20:15 → JERBED 23:33 → JSAMEDAYSX 08-01 11:06
PROVIDERS: ADMIT Internal Medicine
PROC: 0DTJ4ZZ Resection of Appendix, Percutaneous Endoscopic Approach (ICD-10-PCS; principal; 2017-08-01 10:30)
DX: K35.80 Unspecified acute appendicitis (principal); E78.5 Hyperlipidemia, unspecified; I10 Essential (primary) hypertension; R93.8 Abnormal findings on diagnostic imaging of other specified body structures; I35.0 Nonrheumatic aortic (valve) stenosis; I69.354 Hemiplegia and hemiparesis following cerebral infarction affecting left non-dominant side
CPT/HCPCS: 36415; 70450-TC; 71046-TC-FY; 74176-TC; 80053; 82550; 83540; 83550; 83735; 84132; 84484; 85025; 85027; 85044; 85610; 86140; 86480; 86850; 86900; 86901; 87040; 87389; 88304-TC; 93005; 93010; 93306-TC; 99284-25; J0131